=== PATIENT | female | born 1990 | race Caucasian/White ===

== ENCOUNTER 2019-12-20 05:49 | Inpatient (IN) ==
--- NOTE | 2019-12-19 09:21 | History & Physical Report ---
Date of Service December 19, 2019 Assessment & Plan (1) : Plan for repeat section. This surgery is essential and must be done at the appropriate gestational age (39w) to prevent morbidity and mortality of baby and mother. It cannot be delayed. History of Present Illness Chief Complaint: repeat section Primary Care Provider: NO PCP 29yo @ 39 11/15 for scheduled repeat section. History of c- section in prior delivery for failure to progress at [facility]. otherwise uncomplicated. Allergies Allergy/AdvReac Type Severity Reaction Status Date / Time No Known Allergies Verified 12/19/19 08:30 Home Medications Home Medications Medication Instructions Recorded Confirmed Type 21-iron fu-folic acid PO 05/08/19 12/19/19 History Patient History Medical History Fibroid Varicella Surgical History S/P Family History Father Hypertension Hypercholesteremia Grandfather (Paternal) Hypertension Heart disease Mother Hypercholesteremia Grandmother (Maternal) Hypercholesteremia Social History marital status: marital status details: Malcom Segura (29) [phone] Current Living Situation: Family Current Living Situation Comment: dog, cat- spouse changing cat litter. current occupational status: employed current occupation: HR Smoking Status: Never smoker Hx Alcohol Use: No Hx Substance Use: No Review of Systems All systems reviewed & are unremarkable except as noted in HPI & below Physical Exam Constitutional: WD/WN, vitals as above Respiratory: normal respiratory effort, lungs clear to auscultation no respiratory distress Cardiovascular: Rate/Rhythm: regular rate and regular rhythm Gastrointestinal (Abdomen): Inspection/Auscultation: abdomen normal to inspection Percussion/Palpation: abdomen soft; abdomen nontender Gravid. No s/s chorio or abruption. Skin: no rashes, warm and dry Psychiatric: A+Ox3, euthymic affect Monitoring External Monitor FHT 150s in office Coding Level of Care Code None Diagnoses Z34.90
[2019-12-20] MEDS ORDERED: SODIUM CHLORIDE 0.9% 250 ML IV PRN (05:53)
[2019-12-20] MEDS ORDERED: CITRIC ACID/SODIUM CITRATE 15 ML UDC PO SCH (06:00)
[2019-12-20] MEDS ORDERED: LACTATED RINGER'S 1,000 ML IV SCH ×2 (06:00→10:36)
[2019-12-20] MEDS ORDERED: CEFAZOLIN 2,000 MG in SYRINGE 0 ML IV SCH (06:00)
[2019-12-20 06:10] LABS: Basophils # (auto) 0.02 K/uL (0-0.2); Basophils % (auto) 0.2 %; Eosinophils # (auto) 0.09 K/uL (0-0.5); Eosinophils % (auto) 0.8 %; Hematocrit (blood only) 39.4 % (37-47); Immature Granulocytes # (auto) 0.09 K/uL (0.00-0.02); Immature Granulocytes % (auto) 0.8 %; Lymphocytes % (auto) 21.6 %; Mean Corpuscular Hemoglobin 29.3 pg (25-34); Mean Corpuscular Volume 88.7 fL (80-100); Mean Platelet Volume 10.7 fL (7.4-10.4); Monocytes # (auto) 0.69 K/uL (0.11-0.59); Monocytes % (auto) 6.2 %; Neutrophils # (auto) 7.82 K/uL (1.4-6.5); Neutrophils % (auto) 70.4 %; Platelet Count 192 K/uL (130-400); RDW Standard Deviation 45.9 fL (36.4-46.3); Red Blood Count 4.44 M/uL (4.2-5.4); White Blood Count 11.11 K/uL (4.8-10.8)
--- NOTE | 2019-12-20 07:02 | Anesthesiology Consultation ---
Date of Service December 20, 2019 Assessment & Plan (1) Encounter for pre-operative examination: Chart Review Chart Review: Acceptable Risk for Surgery and Patient NOT seen in Pre Admission Testing Consults Requested none ASA ASA2 Proposed Anesthesia Anesthesia Type: Spinal Risk / Benefits Reviewed With: PT / POA / Parent / Guardian, Accepts Plan and In formed Consent Obtained History Surgery Operation Date: 12/20/19 07:30 Proposed Procedures p Section in COURT - Stephanie Martino, Height/Weight Height: 5 ft 2 in Weight: 81.647 kg Allergies Allergy/AdvReac Type Severity Reaction Status Date / Time No Known Allergies Verified 12/19/19 08:30 Medications Home Medications Medication Instructions Recorded Confirmed Last Taken vit-iron fum-folic ac 27 tab PO DAILY 12/20/19 12/20/19 12/19/19 [ Vitamin] NPO Date Last Intake of Fluids: 12/19/19 Time Last Intake of Fluids: 22:00 Date Last Intake of Solids: 12/19/19 Time Last Intake of Solids: 17:00 Past Medical History Medical History Fibroid Varicella Exercise / Class Metabolic Activity II 4-5 Yardwork/Stairs/Walk up hill Past Family History Family History Father Hypertension Hypercholesteremia Grandfather (Paternal) Hypertension Heart disease Mother Hypercholesteremia Grandmother (Maternal) Hypercholesteremia Past Surgical History Surgical History S/P Past Anesthesia History No Hx of Anesthesia Complications History of PONV No Hx of Motion Sickness Social History Smoking Status: Never smoker Hx Alcohol Use: No Hx Substance Use: No Review of Systems Patient denies history of abnormal bleeding or bleeding disorder. Patient denies active use of anticoagulants other than low dose aspirin. Patient denies numbness, tingling or weakness in lower extremities. Negative for chest pain or shortness of breath. Physical Exam Vital Signs Last Vital Signs Temp 36.6 C 12/20/19 06:04 Pulse 102 H 12/20/19 06:00 Resp 18 12/20/19 06:30 BP 118/59 L 12/20/19 06:00 Constitutional not obese (Gravid uterus) ENMT Mouth: no TMJ abnormality and oral opening not small Thyromental Distance: > or= 3.5 Finger Breadths Mallampati Class: I Neck normal visual inspection; neck extension not limited Respiratory normal respiratory effort Auscultation: lungs clear to auscultation bilaterally Cardiovascular Rate/Rhythm: regular rate and regular rhythm Heart Sounds: no murmur Neurologic moves all extremities Psychiatric Orientation: alert and oriented x 3 Testing Laboratory Results 12/20/19 06:00
[2019-12-20] MEDS ORDERED: PHENYLEPHRINE HCL 10 MG/ML VIAL ONE (07:08)
[2019-12-20] MEDS ORDERED: ONDANSETRON INJ 2 MG/ML 2 ML VIAL ONE ×2 (07:08→08:16)
[2019-12-20] MEDS ORDERED: MoRPHine SULFATE PF 1 MG/ML 10 ML AMP/VIAL ONE ×2 (07:10→07:17)
[2019-12-20] MEDS ORDERED: fentaNYL citrate 100 MCG/2 ML VIAL ONE (07:10)
[2019-12-20] MEDS ORDERED: OXYTOCIN 10 UNITS/ML VIAL ONE ×4 (07:19→08:34)
--- NOTE | 2019-12-20 07:28 | History & Physical Bridge Note ---
Date of Service December 20, 2019 History & Physical Bridge Note I have examined the patient, reviewed the History & Physical and in the interval since the performance of the History & Physical I have noted the following changes of clinical significance: no changes noted
[2019-12-20] MEDS ORDERED: KETOROLAC 30 MG/ML VIAL ONE (09:00)
[2019-12-20 09:02] LABS: Base Excess Cord Arterial Bld -1.7 mEq/L (-9-1.8); CO2 Cord Arterial Blood 51 mmHg (39.1-73.5); HCO3 Cord Arterial Blood 25 mmol/L (19.7-28.5); PO2 Cord Arterial Blood 20 mmHg (4.1-31.7); pH Cord Arterial Blood 7.31 (7.1-7.38)
[2019-12-20 09:06] LABS: Base Excess Cord Venous Blood -2.1 mEq/L (-7.7-1.9); Cord Venous Blood HCO3 23 mmol/L (18.4-26.8); Cord Venous Blood PCO2 39 mmHg (30.4-57.2); Cord Venous Blood PO2 33 mmHg (14.1-43.3); Cord Venous Blood pH 7.39 (7.20-7.44)
--- NOTE | 2019-12-20 09:21 | Operative Report ---
PG Post Operative Report Pre & Post Diagnosis Operation Date: 12/20/19 07:30 Pre-Op Diagnosis: 1. History of c/section X 1 2. Term Post-Op Diagnosis: Same I identified the patient and participated in the time-out.: Yes Procedure Operation Date: 12/20/19 07:30 Actual Procedures p repeat low transverse Section in - Stephanie Martino DO Surgeon Stephanie Martino DO Department Supervisor Yossi Monreal MD Estimated Blood Loss 400 Findings Consistent with Post-Op Diagnosis Viable female , Apgars 8/9. Weight 6#12. Normal appearing uterus, tubes, ovaries. Specimens placenta, cord blood, cord gas Drains arnold, clear yellow Anesthesia Type Spinal Complications none Disposition Accompanied Patient To Recovery: No Disposition: L&D Indications 29yo @ 39 11/15, h/o x 1 and desire for repeat. Description of Procedure The patient was seen in the preoperative holding area, where risks benefits and alternatives to surgery reviewed. She elected to proceed with the case. She had previously signed informed consent under no duress in the office. All ques tions were answered. The patient was taken to the operating room, spinal anesthesia was administered. She received 2 g of Ancef preoperatively. She was repaired and draped in the usual sterile fashion in the supine position with a leftward tilt. Timeout was confirmed. The Pfannenstiel skin incision was made with a scalpel and carried through to the underlying layer of fascia. The fascia was nicked at midline, and this incision was extended bilaterally sharply and bluntly. The superior aspect of the fascial incision was grasped with Aries clamps x2, elevated off the underlying rectus abdominis muscles, and dissected sharply and bluntly. In a similar fashion, the inferior aspect of the fascia was dissected. The rectus abdominis muscles were at midline, and the peritoneum was entered bluntly digitally and this incision was extended sharply and bluntly. The bladder flap was taken down using Metzenbaum scissors. Bladder blade was placed. A new scalpel was used to create a low transverse uterine incision, this was extended bilaterally bluntly. The was delivered from a cephalic presentation, the head was delivered, nuchal cord x1 was easily reduced. The shoulders followed by the body were delivered. Spontaneous cry was heard on the field. The cord was doubly clamped and cut, the baby was handed off to the waiting pediatrics team. A cord segment was retained for cord gases. Cord blood was obtained. Placenta was delivered spontaneously intact with three- vessel cord. The uterus was exteriorized, and cleared of all clots and debris. The hysterotomy was reapproximated using 0 Vicryl in a running locked stitch. A second layer of the same suture was used to imbricate the incision. The posterior uterus was evaluated and normal. The uterus was placed back inside the abdomen, and gutters were cleared of all clots and debris. The hysterotomy was reevaluated, and found to be hemostatic. The fascia was reapproximated using 0 Vicryl in a running stitch. The subcutaneous tissue was irrigated and reapproximated using 2-0 plain gut in a running stitch. The skin was reapproximated using 4-0 Vicryl in a running subcuticular stitch. Steri-Strips and a bandage were applied. Patient tolerated the procedure well, and sponge and instrument and needle counts were correct x2 at the conclusion of the case. She was taken to her room in stable and good condition. I attest to the content of the Intraoperative Record and any orders documented therein. Any exceptions are noted below.
[2019-12-20 09:51] LABS: Oxygen Sat Cord Arterial Blood < 60.0 % (<60)
--- NOTE | 2019-12-20 10:02 | Anesthesiology Progress Note ---
Date of Service December 20, 2019 Anesthesia Post Procedure Vital Signs Vital Signs: Temp Pulse Resp BP Pulse Ox 12/20/19 10:00 72 114/64 12/20/19 09:56 73 97 12/20/19 09:52 86 91 12/20/19 09:51 82 97 12/20/19 09:50 84 106/70 12/20/19 09:46 80 96 12/20/19 09:44 79 115/62 12/20/19 09:41 82 96 12/20/19 09:38 93 H 92 12/20/19 09:36 86 93 12/20/19 09:31 78 95 12/20/19 09:30 89 18 111/53 L 94 12/20/19 09:26 76 100 12/20/19 09:21 84 100 12/20/19 09:20 83 18 103/57 L 99 12/20/19 09:16 84 99 12/20/19 09:11 81 98 12/20/19 09:10 36.5 C 84 18 102/58 L 99 12/20/19 09:07 86 108/62 12/20/19 09:06 83 98 12/20/19 08:00 89 100 12/20/19 07:55 102 H 100 12/20/19 07:50 92 H 99 12/20/19 07:45 91 H 100 12/20/19 07:40 92 H 100 12/20/19 07:35 91 H 99 12/20/19 07:30 91 H 100 12/20/19 07:25 90 100 12/20/19 07:20 88 99 12/20/19 07:15 84 100 12/20/19 07:10 94 H 98 12/20/19 07:09 87 109/64 12/20/19 07:00 18 12/20/19 06:30 18 12/20/19 06:04 36.6 C 18 12/20/19 06:00 102 H 118/59 L Transfer of Care Handoff Completed per policy Notes Mental Status: alert / awake / arousable and participated in evaluation Nausea / Vomiting: adequately controlled Pain: adequately controlled Airway Patency, RR, SpO2: stable & adequate BP & HR: stable & adequate Hydration State: stable & adequate Neuraxial Anesthesia: was administered and sensory block is resolving Anesthetic Complications: no major complications apparent and Pt Satisfied with anesthetic care
[2019-12-20] MEDS ORDERED: DIPHTHERIA/TETANUS/PERTUSSIS 0.5 ML SYR/VIAL IM ONE (10:36)
[2019-12-20] MEDS ORDERED: BENZOCAINE 20% AER SPR 82.5 GM CAN EXT PRN (10:36)
[2019-12-20] MEDS ORDERED: HYDROCORTISONE ACETATE 25 MG SUPP PR PRN (10:36)
[2019-12-20] MEDS ORDERED: SENNA 8.6 MG TAB PO PRN (10:36)
[2019-12-20] MEDS ORDERED: MAGNESIUM HYDROXIDE SUSP 30 ML UDC PO PRN (10:36)
[2019-12-20] MEDS ORDERED: SUPERCREAM 0.870% 15 GM JAR EXT PRN (10:36)
[2019-12-20] MEDS: OXYTOCIN 30 UNITS in LACTATED RINGER'S 1,000 ML IV SCH ×2 (11:28→20:01)
[2019-12-20] MEDS: SIMETHICONE 80 MG CHEW PO SCH ×3 (12:47→20:01)
[2019-12-20] MEDS ORDERED: KETOROLAC 30 MG/ML VIAL IV PRN (13:26)
[2019-12-20] MEDS ORDERED: NALOXONE HCL 1 MG in SODIUM CHLORIDE 0.9% 1000ML 1,000 ML IV PRN (13:26)
[2019-12-20] MEDS ORDERED: LACTATED RINGER'S 500 ML IV PRN (13:26)
[2019-12-20] MEDS ORDERED: NALBUPHINE HCL INJ 10 MG/ML AMP IV PRN (13:26)
[2019-12-20] MEDS ORDERED: DiphenhydrAMINE HCL 50 MG/ML VIAL IV PRN (13:26)
[2019-12-20] MEDS ORDERED: MEPERIDINE HCL 25 MG/ML CARP/VIAL IV PRN (13:26)
[2019-12-20] MEDS ORDERED: NALOXONE HCL 0.08 MG in SYRINGE 1.8 ML IV PRN (13:26)
[2019-12-20] MEDS ORDERED: MoRPHine SULFATE PF 1 MG/ML 10 ML AMP/VIAL INT SPINAL ONE (13:26)
[2019-12-20] MEDS ORDERED: ePHEDrine sulfate 50 MG/ML AMP IV PRN (13:26)
[2019-12-20] MEDS ORDERED: NALOXONE HCL 0.4 MG/1 ML VIAL/CARP IV PRN (13:26)
[2019-12-20] MEDS ORDERED: ONDANSETRON INJ 2 MG/ML 2 ML VIAL IV PRN (13:26)
[2019-12-20] MEDS ORDERED: NO NARCOTICS OR SEDATIVES SCH (13:30)
[2019-12-20] MEDS ORDERED: SODIUM CHLORIDE 0.9% 1000ML 1,000 ML IV SCH (13:30)
[2019-12-20] MEDS ORDERED: DC INTRASPINAL MORPHINE SCH (19:30)
[2019-12-20] MEDS: DOCUSATE SODIUM 100 MG CAP PO SCH (20:08)
[2019-12-21] MEDS ORDERED: KETOROLAC 30 MG/ML VIAL IV PRN ×2 (02:10→07:27)
[2019-12-21] MEDS ORDERED: PROMETHAZINE HCL 25 MG in SODIUM CHLORIDE 0.9% 50 ML IV PRN ×2 (02:10→07:27)
[2019-12-21] MEDS ORDERED: DiphenhydrAMINE HCL 50 MG/ML VIAL IV PRN ×2 (02:10→07:27)
[2019-12-21] MEDS ORDERED: ONDANSETRON INJ 2 MG/ML 2 ML VIAL IV PRN ×2 (02:10→07:27)
[2019-12-21] MEDS ORDERED: OXYCODONE/ACETAMINOPHEN 5mg/325mg TAB PO PRN ×2 (02:10→07:27)
[2019-12-21] MEDS: IBUPROFEN 600 MG TAB PO PRN ×5 (02:59→23:41)
[2019-12-21 06:01] LABS: Hematocrit (blood only) 36.6 % (37-47); Hemoglobin 11.8 g/dL (12.0-16.0)
[2019-12-21] MEDS ORDERED: IBUPROFEN 600 MG TAB PO PRN (07:27)
[2019-12-21] MEDS: DOCUSATE SODIUM 100 MG CAP PO SCH ×2 (08:07→21:10)
[2019-12-21] MEDS: PRENATAL VITAMIN 1 TAB PO SCH (08:08)
[2019-12-21] MEDS: FERROUS SULFATE 325 MG TAB PO SCH (08:08)
[2019-12-21] MEDS: SIMETHICONE 80 MG CHEW PO SCH ×4 (08:08→21:10)
--- NOTE | 2019-12-21 08:21 | Obstetrical Progress Note ---
Date of Service December 21, 2019 Assessment & Plan (1) : POD#1 doing well. Continue routine postop care. Subjective Ambulation: ambulating normally Voiding: no voiding problems Passing Gas:: Yes Diet Tolerance:: regular diet Lochia:: Moderate Feeding Type:: breast feeding POD#1 doing well. No concerns. Briscoe out, ambulating, passing gas, tolerating PO. Review of Systems All systems reviewed & are unremarkable except as noted in HPI & below Physical Exam Constitutional WD/WN, vitals as above no acute distress Respiratory normal respiratory effort Cardiovascular Rate/Rhythm: regular rate and regular rhythm Gastrointestinal (Abdomen) Inspection/Auscultation: abdomen normal to inspection; abdomen not distended Percussion/Palpation: abdomen soft Genitourinary OB Exam Abdomen: + fundal height Fundus: + firm; not tender Results & Data Vital Signs (Past 12 Hours) Vital Signs Temp Pulse Resp BP Pulse Ox 12/21/19 03:15 36.8 C 70 14 97/61 L 98 12/21/19 01:50 16 99 12/21/19 01:00 16 100 12/20/19 23:50 36.8 C 69 16 111/79 99 12/20/19 23:00 16 96 12/20/19 22:30 16 98 12/20/19 21:30 16 99 12/20/19 20:30 16 98
[2019-12-21] MEDS ORDERED: PRENATAL VIT IRON FUM FOLIC AC PO SCH (09:00)
[2019-12-21] MEDS ORDERED: ACETAMINOPHEN 325 MG TAB PO PRN (14:11)
[2019-12-21] MEDS ORDERED: OXYCODONE HCL IR 5 MG TAB (IMMEDIATE RELEASE) PO PRN (14:11)
[2019-12-21] MEDS ORDERED: bisacodyL 5 MG TABEC PO SCH (20:00)
[2019-12-22] MEDS: DOCUSATE SODIUM 100 MG CAP PO SCH (07:36)
[2019-12-22] MEDS: FERROUS SULFATE 325 MG TAB PO SCH (07:36)
[2019-12-22] MEDS: PRENATAL VITAMIN 1 TAB PO SCH (07:36)
[2019-12-22] MEDS: SIMETHICONE 80 MG CHEW PO SCH (07:36)
[2019-12-22] MEDS: IBUPROFEN 600 MG TAB PO PRN (07:36)
[2019-12-22] MEDS ORDERED: ACETAMINOPHEN W/CODEINE #3 1 TAB PO PRN ×2 (07:43)
--- NOTE | 2019-12-22 07:46 | Obstetrical Progress Note ---
Date of Service December 22, 2019 Assessment & Plan (1) : POD#1 doing well. Continue routine postop care. Subjective Ambulation: ambulating normally Voiding: no voiding problems Diet Tolerance:: regular diet Lochia:: Moderate Feeding Type:: breast feeding Physical Exam Constitutional WD/WN, vitals as above Respiratory normal respiratory effort; no respiratory distress and no labored breathing Gastrointestinal (Abdomen) Inspection/Auscultation: abdomen normal to inspection; abdomen not distended Percussion/Palpation: abdomen soft; abdomen nontender, no guarding and abdomen not rigid Incision healing well Genitourinary OB Exam Abdomen: + fundal height Fundus: + firm and + relation to umbilicus (Below); not tender and not boggy Results & Data Vital Signs (Past 12 Hours) Vital Signs Temp Pulse Resp BP Pulse Ox 12/21/19 23:20 37.0 C 63 16 107/74 97
[2019-12-22] MEDS ORDERED: TYLENOL #3 HOME PACK PO ONE (08:49)
[2019-12-22] MEDS ORDERED: bisacodyL 10 MG SUPP PR PRN (09:09)
--- NOTE | 2019-12-22 10:27 | Anesthesiology Progress Note ---
Date of Service December 22, 2019 Anesthesia Post Procedure Vital Signs Vital Signs: Temp Pulse Resp BP Pulse Ox 12/22/19 10:00 36.8 C 64 16 111/75 99 12/22/19 07:45 36.8 C 64 16 111/75 99 12/21/19 23:20 37.0 C 63 16 107/74 97 12/21/19 16:00 37.1 C 76 18 126/81 99 Pain Intensity Lower Abdomen: Pain Intensity: 1 Transfer of Care Handoff Completed per policy Notes Mental Status: alert / awake / arousable Patient Amnestic to Procedure: Yes Nausea / Vomiting: adequately controlled Pain: adequately controlled Airway Patency, RR, SpO2: stable & adequate BP & HR: stable & adequate Hydration State: stable & adequate Neuraxial Anesthesia: was administered and sensory block resolved Anesthetic Complications: no major complications apparent and Pt Satisfied with anesthetic care Notes: The patient was discharged this AM.
--- NOTE | 2019-12-23 14:10 | Discharge Summary ---
Date of Service December 23, 2019 Admission HPI Per Admitting Provider 29yo @ 39 11/15 for scheduled repeat section. History of c- section in prior delivery for failure to progress at [facility]. otherwise uncomplicated. Discharge Data Consultations 12/20/19 05:51 Consult Anesthesiology Stat Procedures Performed Operation Date: 12/20/19 07:30 Actual Procedures p Repeat low transverse Section in [facility] Stephanie Martino DO Hospital Course (1) : Admitted for scheduled repeat low transverse section. Routine postop care, was discharged to home POD#2. Coding Level of Care Code None Diagnoses Z34.90
== END 2019-12-22 10:00 | disposition home or self-care (01) | DRG 788 ==
LOC: 4S1 05:49 → EDSTATUS 07:30 → 4S2 11:20

== ENCOUNTER 2023-05-05 05:42 | Inpatient (IN) ==
--- NOTE | 2023-04-28 12:44 | Anesthesiology Consultation ---
Date of Service April 28, 2023 Assessment & Plan (1) Encounter for pre-operative examination: Chart Review Chart Review: entry clerk initiated -Infectious Disease screening: Per PAT nursing assessment on 04/28/23. No known infectious disease contacts in past 10 days or current infectious disease symptoms. No recent travel outside the country. Repeat 12/20/19= Done under SAB at L3 with 1 attempt History Surgery Operation Date: 05/05/23 07:30 Proposed Procedures p Section in LD (Delivery of Baby Through Abdominal Incision) - Lizzette Winkler MD, FACOG Height/Weight Height: 5 ft 2 in Weight: 83.007 kg Allergies Allergy/AdvReac Type Severity Reaction Status Date / Time No Known Allergies Allergy Verified 04/28/23 12:00 Medications Home Medications Medication Instructions Recorded Confirmed Last Taken prenat.vits,joseph,[id number] 1 tab PO DAILY 10/12/22 04/28/23 Unknown Past Medical History Medical History Exercise-induced asthma hx>no inh-mainly in high school Fibroid in her breasts-years ago due to OBC and "they went away" History of chicken pox Past Family History Family History Father Hypertension Hypercholesteremia Grandfather (Paternal) Hypertension Heart disease Mother Hypercholesteremia Grandmother (Maternal) Hypercholesteremia Denies family history of Ovarian cancer Breast cancer Colorectal cancer Past Surgical History Surgical History S/P x2 Social History Smoking Status: Never smoker Do You Dip or Chew Tobacco: No Hx Alcohol Use: Yes alcohol intake frequency: holidays/special occasions only Alcohol Intake Frequency Comment: not while Hx Substance Use: No substance use type: does not use
--- NOTE | 2023-05-04 10:55 | History & Physical Report ---
Date of Service May 04, 2023 Assessment & Plan (1) 39 weeks gestation of : (2) Previous delivery affecting , antepartum: Plan Will plan c/s on day of admission. will need labs, iv. consent reviewed and signed. denies concerns. risks and alt reviewed. rh pos, r-->equiv, mmr pp rec. History of Present Illness Chief Complaint: planned repeat c/s Primary Care Provider: NO PCP 33yo at 39+wks on day of her admission for planned repeat c/s. Patient has felt well. No rom, vb. +FM. No ctx. Declines concomitant tubal ligation. This will be her third c/s. PNC c/b 1. prior c/s x 2 2. MMR pp rec. PNL rh pos, rubella equivocal, gbs neg OBH: c/s x 2. GYNH: nl paps, no stds Allergies Allergy/AdvReac Type Severity Reaction Status Date / Time No Known Allergies Allergy Verified 05/04/23 09:05 Home Medications Medication Instructions Recorded Confirmed Type prenat.vits,joseph,[id number] 1 tab PO DAILY 10/12/22 05/04/23 History Patient History Medical History Exercise-induced asthma hx>no inh-mainly in high school Fibroid in her breasts-years ago due to OBC and "they went away" History of chicken pox Surgical History S/P x2 Family History Father Hypertension Hypercholesteremia Grandfather (Paternal) Hypertension Heart disease Mother Hypercholesteremia Grandmother (Maternal) Hypercholesteremia Denies family history of Ovarian cancer Breast cancer Colorectal cancer Social History (Updated 10/12/22 @ 09:57 by Lauren Roberts) Smoking Status: Never smoker Second Hand Exposure: No; Do You Dip or Chew Tobacco: No; Hx Alcohol Use: Yes Hx Substance Use: No Preferred Language: Malay Communication Ability: Effective Group Contract Analyst Required: No Beliefs That Will Affect Care: None marital status: marital status details: Malcom Segura (32) [phone] Current Living Situation: Spouse and Family Current Living Situation Comment: lives with spouse, 2 children, dog current occupational status: employed 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
[2023-05-05] MEDS ORDERED: CITRIC ACID/SODIUM CITRATE 15 ML UDC PO SCH (06:00)
[2023-05-05] MEDS ORDERED: LACTATED RINGER'S 1,000 ML IV SCH (06:00)
[2023-05-05] MEDS ORDERED: ceFAZolin 2,000 MG in SYRINGE 0 ML IV SCH (06:00)
[2023-05-05 06:24] LABS: Basophils # (auto) 0.02 K/uL (0.00-0.20); Basophils % (auto) 0.2 %; Eosinophils # (auto) 0.07 K/uL (0.00-0.50); Eosinophils % (auto) 0.8 %; Hematocrit (blood only) 40.2 % (37.0-47.0); Hemoglobin 13.3 g/dl (12.0-16.0); Immature Granulocytes % (auto) 1.1 %; Lymphocytes # (auto) 1.88 K/uL (1.20-3.40); Lymphocytes % (auto) 20.3 %; Mean Corpuscular Hemoglobin 29.2 pg (25.0-34.0); Mean Corpuscular Hgb Conc 33.1 g/dL (32.0-36.0); Mean Corpuscular Volume 88.4 fL (80.0-100.0); Mean Platelet Volume 10.7 fL (9.4-12.4); Monocytes # (auto) 0.54 K/uL (0.11-0.59); Monocytes % (auto) 5.8 %; Neutrophils # (auto) 6.64 K/uL (1.40-6.50); Neutrophils % (auto) 71.8 %; Platelet Count 185 K/uL (130-400); RDW Coefficient of Variation 13.4 % (11.5-14.5); RDW Standard Deviation 43.3 fL (36.4-46.3); Red Blood Count 4.55 M/uL (4.20-5.40); White Blood Count 9.25 K/ul (4.8-10.8)
[2023-05-05] MEDS ORDERED: OXYTOCIN 10 UNITS/ML VIAL ONE (06:59)
[2023-05-05] MEDS ORDERED: fentaNYL citrate PF 100 MCG/2 ML VIAL ONE (06:59)
[2023-05-05] MEDS ORDERED: MoRPHine SULFATE PF 1 MG/ML 10 ML AMP/VIAL ONE (06:59)
[2023-05-05] MEDS ORDERED: ONDANSETRON INJ 2 MG/ML 2 ML VIAL ONE (06:59)
[2023-05-05] MEDS ORDERED: PHENYLEPHRINE 100MCG/ML 5ML SYR ONE (06:59)
[2023-05-05] MEDS ORDERED: SODIUM CHLORIDE 0.9% 250 ML IV PRN (07:08)
--- NOTE | 2023-05-05 07:25 | History & Physical Bridge Note ---
Date of Service May 05, 2023 History & Physical Bridge Note I have examined the patient, reviewed the History & Physical and in the interval since the performance of the History & Physical I have noted the following changes of clinical significance: no changes noted
[2023-05-05] MEDS ORDERED: NALOXONE HCL 0.08 MG in SYRINGE 1.8 ML IV PRN (07:45)
[2023-05-05] MEDS ORDERED: LACTATED RINGER'S 500 ML IV PRN (07:45)
[2023-05-05] MEDS ORDERED: diphenhydrAMINE 50 MG/ML VIAL IV PRN (07:45)
[2023-05-05] MEDS ORDERED: NALBUPHINE HCL INJ 10 MG/ML AMP IV PRN (07:45)
[2023-05-05] MEDS ORDERED: NO NARCOTICS OR SEDATIVES SCH (07:45)
[2023-05-05] MEDS ORDERED: ePHEDrine sulfate 50 MG/ML AMP IV PRN (07:45)
[2023-05-05] MEDS ORDERED: MoRPHine SULFATE PF 1 MG/ML 10 ML AMP/VIAL INT SPINAL ONE (07:45)
[2023-05-05] MEDS ORDERED: HYDROmorphone INJ 0.5 MG/0.5 ML SYR IV PRN (07:45)
[2023-05-05] MEDS ORDERED: NALOXONE HCL 0.4 MG/1 ML VIAL/CARP IV PRN (07:45)
[2023-05-05] MEDS ORDERED: PROMETHAZINE HCL 12.5 MG in SODIUM CHLORIDE 0.9% 50 ML IV PRN (07:45)
[2023-05-05] MEDS ORDERED: SODIUM CHLORIDE 0.9% 1000ML 1,000 ML IV SCH (07:45)
[2023-05-05] MEDS ORDERED: ONDANSETRON INJ 2 MG/ML 2 ML VIAL IV PRN (07:45)
[2023-05-05] MEDS ORDERED: DC INTRASPINAL MORPHINE SCH (07:45)
[2023-05-05] MEDS ORDERED: NALOXONE HCL 1 MG in SODIUM CHLORIDE 0.9% 1000ML 1,000 ML IV PRN (07:45)
--- NOTE | 2023-05-05 08:25 | Operative Report ---
PG Post Operative Report Pre & Post Diagnosis Operation Date: 05/05/23 07:30 Pre-Op Diagnosis: 1. 39 weeks 2. Previous section x 2 Post-Op Diagnosis: Same I identified the patient and participated in the time-out.: Yes Procedure Operation Date: 05/05/23 07:30 Actual Procedures p Repeat Low Transverse Section in LD (Delivery of Baby Through Abdominal Incision) with the of a live female child at 0751. - Lizzette Winkler MD, FACOG Surgeon Lizzette Winkler MD, FACOG Drum Attendant Berta Estimated Blood Loss 450 Findings Consistent with Post-Op Diagnosis (viable female , apgars pending. normal uterus, tubes and ovaries bilaterally. ) Fluids 1100cc Specimens cord blood Drains arnold Anesthesia Type Spinal Complications none Disposition Accompanied Patient To Recovery: No Disposition: L&D Indications 33yo at 39+wks egsergio presents to L&D for planned repeat c/s with history of c/s x 2. Description of Procedure The patient was taken to the operating room and identified. After adequate anesthesia was obtained, she was placed in the supine position with a leftward tilt on the operating table and prepped and draped in the usual sterile fashion. A arnold catheter had already been placed. The knife was used to create a Pfannensteil skin incision that was carried down to the underlying layer of fascia. The fascia was nicked in the midline and this opening was extended laterally using Morales scissors. Ronen clamps were placed on the superior and inferior aspect of the fascial incision tenting it upward and the underlying rectus muscles were dissected off the overlying fascia both sharply and bluntly using Morales scissors. The rectus muscles were bluntly in the midline. The peritoneal cavity was bluntly entered into. This opening was stretched. The bladder blade was placed. The vesicouterine peritoneum was elevated and opened up into and the bladder flap was created digitally and bladder blade was replaced. The knife was used to create a hysterotomy and this opening was stretched. The operators hand was placed through the hysterotomy and the bladder blade was removed. The head was elevated and flexed and with fundal pressure the head was delivered. The shoulders and body were rapidly delivered. The cord was clamped and cut and the 's mouth and nares were bulb suction. The infant was handed off to the awaiting pediatricians. Cord blood was obtained. The placenta was manually expressed. The uterus was exteriorized and cleared of all clots and debris. Dilute IV Pitocin was begun. The uterine tone was improving. The hysterotomy was closed in a running interlocking fashion using 0 Vicryl followed by a second imbricating layer of 0 Vicryl. The hysterotomy was not hemostatic in midline and so additional figure of eight suture of 2-0 vicryl placed for excellent hemostasis. The pelvis was irrigated. The uterus was returned to the abdomen. The gutters were cleared of all clots and debris. The hysterotomy was reinspected and noted to be hemostatic. The fascia was then closed in running fashion using 0 Vicryl. The subcutaneous fat was copiously irrigated and reapproximated using 2-0 chromic. The skin was closed in a subcuticular fashion using 4-0 monocryl. At this point the procedure was terminated. The patient was transferred to the recovery room in stable condition. All sponge, lap and needle counts are correct x2. I attest to the content of the Intraoperative Record and any orders documented therein. Any exceptions are noted below. OB Procedure Charges 17881
[2023-05-05] MEDS ORDERED: MEASLES, MUMPS & RUBELLA VIRUS VIAL SQ ONE (08:27)
[2023-05-05] MEDS ORDERED: SENNA 8.6 MG TAB PO PRN (08:40)
[2023-05-05] MEDS ORDERED: BENZOCAINE 20% SPRY 85 APPLN/85 GM CAN EXT PRN (08:40)
[2023-05-05] MEDS ORDERED: DIPHTHERIA/TETANUS/PERTUSSIS Vaccine (Tdap, Age 7+yrs) 0.5mL SYR/VL IM ONE (08:40)
[2023-05-05] MEDS ORDERED: MAGNESIUM HYDROXIDE SUSP 30 ML UDC PO PRN (08:40)
[2023-05-05] MEDS ORDERED: HYDROCORTISONE ACETATE 25 MG SUPP PR PRN (08:40)
--- NOTE | 2023-05-05 08:40 | Anesthesiology Progress Note ---
Date of Service May 05, 2023 Anesthesia Post Procedure Vital Signs Vital Signs: Temp Pulse Resp BP Pulse Ox 05/05/23 05:59 37.1 C 18 05/05/23 08:32 70 98 05/05/23 08:37 80 98 05/05/23 08:29 73 99/54 L 05/05/23 08:27 71 97 05/05/23 07:04 76 113/69 05/05/23 05:55 18 05/05/23 05:55 37.1 C 05/05/23 05:54 96 H 111/76 Transfer of Care Handoff Completed per policy Notes Mental Status: alert / awake / arousable and participated in evaluation Patient Amnestic to Procedure: No Nausea / Vomiting: adequately controlled Pain: adequately controlled Airway Patency, RR, SpO2: stable & adequate BP & HR: stable & adequate Hydration State: stable & adequate Neuraxial Anesthesia: was administered and sensory block is resolving Anesthetic Complications: no major complications apparent and Pt Satisfied with anesthetic care
[2023-05-05] MEDS ORDERED: NON-FORMULARY MEDICATION (Prenat.Vits,Cal,Min-Iron-Folic tablet) PO SCH (09:00)
[2023-05-05] MEDS: OXYTOCIN 20 UNITS in LACTATED RINGER'S 1,000 ML IV SCH ×2 (10:40→18:52)
[2023-05-05] MEDS: KETOROLAC 30 MG/ML VIAL IV PRN ×2 (11:17→22:35)
[2023-05-05] MEDS: SIMETHICONE 80 MG CHEW PO SCH ×3 (12:05→21:14)
[2023-05-05] MEDS: LACTATED RINGER'S 1,000 ML IV SCH (18:48)
[2023-05-05] MEDS: DOCUSATE SODIUM 100 MG CAP PO SCH (21:14)
[2023-05-06] MEDS ORDERED: diphenhydrAMINE Capsule 25 MG CAP PO PRN (01:46)
[2023-05-06] MEDS ORDERED: diphenhydrAMINE 50 MG/ML VIAL IV PRN (01:46)
[2023-05-06] MEDS ORDERED: ONDANSETRON INJ 2 MG/ML 2 ML VIAL IV PRN (01:46)
[2023-05-06] MEDS ORDERED: MEPERIDINE HCL 50 MG/ML CARP IV PRN (01:46)
[2023-05-06] MEDS ORDERED: PROMETHAZINE HCL 25 MG in SODIUM CHLORIDE 0.9% 50 ML IV PRN (01:46)
[2023-05-06] MEDS ORDERED: KETOROLAC 30 MG/ML VIAL IV PRN (01:46)
[2023-05-06 06:29] LABS: Basophils # (auto) 0.03 K/uL (0.00-0.20); Basophils % (auto) 0.4 %; Eosinophils # (auto) 0.13 K/uL (0.00-0.50); Eosinophils % (auto) 1.6 %; Hematocrit (blood only) 32.9 % (37.0-47.0); Immature Granulocytes # (auto) 0.05 K/uL (0.01-0.20); Immature Granulocytes % (auto) 0.6 %; Lymphocytes # (auto) 1.53 K/uL (1.20-3.40); Lymphocytes % (auto) 18.8 %; Mean Corpuscular Hemoglobin 29.8 pg (25.0-34.0); Mean Corpuscular Hgb Conc 33.4 g/dL (32.0-36.0); Mean Corpuscular Volume 89.2 fL (80.0-100.0); Monocytes # (auto) 0.56 K/uL (0.11-0.59); Monocytes % (auto) 6.9 %; Neutrophils # (auto) 5.84 K/uL (1.40-6.50); Neutrophils % (auto) 71.7 %; Platelet Count 142 K/uL (130-400); RDW Coefficient of Variation 13.4 % (11.5-14.5); Red Blood Count 3.69 M/uL (4.20-5.40); White Blood Count 8.14 K/ul (4.8-10.8)
--- NOTE | 2023-05-06 06:53 | Obstetrical Progress Note ---
Date of Service May 06, 2023 Assessment & Plan (1) S/P : Plan: encourage ambulation pain management Admission and Anticipated Discharge Date Admission Date: May 05, 2023 Supervising Physician Co-Signing Physician Notes Resident Physician Supervision Note: I was present with Dr. Sanderson during the history and exam. I discussed the case with the resident and agree with the findings and plan as documented in the note. Any exceptions or clarifications are listed here: [None] Documented By: Javier Davidson MD, FACOG Subjective 33 yo post day 1 s/p Ambulation: ambulating normally Voiding: no voiding problems Passing Gas:: Yes Diet Tolerance:: regular diet Lochia:: Small Feeding Type:: bottle feeding Current Pain Level: minimal Resting comfortably this AM Denies TONG, CP, SOB, N/V/D, LE swelling Review of Systems Review of Systems: reviewed, per hpi Physical Exam Physical Exam: General: patient resting comfortably, NAD, non-toxic in appearance, AA&O x 4, answers questions appropriately. Skin: warm, dry, intact HEENT: NC/AT, anicteric sclera, conjunctiva without injection, moist mucus membranes. Heart: +S1/S2, regular, no m/r/g Lungs: equal air entry bilaterally, no rales/rhonchi/wheezes Abd: +BS, soft, NT/ND, uterine fundus firm at umbilicus, Ext: warm, no clubbing/cyanosis or edema, Kendra's neg Neuro: nonfocal, patient AA&O x 4, speech intact, no facial droop, moving all extremities on command. Results & Data Vital Signs (Past 12 Hours) Vital Signs Temp Pulse Resp BP Pulse Ox O2 Del Method 05/06/23 03:35 36.6 C 79 16 104/69 98 Room Air 05/06/23 00:45 36.7 C 71 17 109/70 96 Room Air 05/06/23 00:55 16 97 05/05/23 23:55 16 96 05/05/23 22:55 16 97 05/05/23 21:55 16 98 05/05/23 20:55 16 97 05/05/23 19:55 17 98 05/05/23 19:55 Room Air 05/05/23 19:55 36.7 C 56 L 17 109/71 98 Room Air Resident Activity Tracking Resident Involvement: Resident Care Provided Care Provided: Adult Hospital Medicine
[2023-05-06] MEDS: PRENATAL VITAMIN 1 TAB PO SCH (08:02)
[2023-05-06] MEDS: DOCUSATE SODIUM 100 MG CAP PO SCH ×2 (08:02→20:40)
[2023-05-06] MEDS: SIMETHICONE 80 MG CHEW PO SCH ×4 (08:03→20:40)
[2023-05-06] MEDS: IBUPROFEN 600 MG TAB PO PRN ×3 (08:03→17:21)
[2023-05-06] MEDS: FERROUS SULFATE 325 MG TAB PO SCH (08:03)
[2023-05-06] MEDS: oxyCODONE/ACETAMINOPHEN 5mg/325mg TAB PO PRN ×3 (09:18→17:21)
[2023-05-06] MEDS ORDERED: bisacodyL 5 MG TABEC PO SCH (20:00)
[2023-05-07] MEDS: oxyCODONE/ACETAMINOPHEN 5mg/325mg TAB PO PRN ×2 (00:25→07:28)
[2023-05-07] MEDS: IBUPROFEN 600 MG TAB PO PRN ×2 (00:25→07:30)
[2023-05-07 06:47] LABS: Hematocrit (blood only) 34.5 % (37.0-47.0); Hemoglobin 11.3 g/dl (12.0-16.0)
[2023-05-07] MEDS: SIMETHICONE 80 MG CHEW PO SCH (07:24)
[2023-05-07] MEDS: DOCUSATE SODIUM 100 MG CAP PO SCH (07:25)
[2023-05-07] MEDS: PRENATAL VITAMIN 1 TAB PO SCH (07:25)
[2023-05-07] MEDS: FERROUS SULFATE 325 MG TAB PO SCH (07:26)
[2023-05-07] MEDS ORDERED: MEASLES, MUMPS & RUBELLA VIRUS VIAL ONE (07:40)
--- NOTE | 2023-05-07 08:07 | Obstetrical Progress Note ---
Date of Service May 07, 2023 Assessment & Plan (1) examination following delivery: Plan stable, doing well. wants to go home. instructions reviewed. mmr given. breast/rhpos. f/u 6wk pp check. checked on papdmp and no issues. hgb noted. Day #:: 2 Subjective Ambulation: ambulating normally Voiding: no voiding problems Passing Gas:: Yes Diet Tolerance:: regular diet Lochia:: Small Feeding Type:: breast feeding denies pain issues. wants to go home. Constitutional: + as per Subjective / HPI Physical Exam Constitutional WD/WN, vitals as above Respiratory normal respiratory effort, lungs clear to auscultation Cardiovascular Rate/Rhythm: regular rate and regular rhythm Gastrointestinal (Abdomen) Inspection/Auscultation: abdomen normal to inspection and + abdominal surgical incision (c/d/i with minimal bruising) Percussion/Palpation: abdomen soft fundus firm 1-2 cm below umbilicus Musculoskeletal nt calves trace pedal edema Neurologic grossly normal Psychiatric A+Ox3, euthymic affect Results & Data Vital Signs (Past 12 Hours) Vital Signs Temp Pulse Resp BP Pulse Ox O2 Del Method 05/07/23 00:30 97.7 F 80 20 111/74 98 Room Air 05/06/23 20:45 97.7 F 79 18 117/66
[2023-05-07] MEDS ORDERED: bisacodyL 10 MG SUPP PR PRN (08:16)
--- NOTE | 2023-05-09 15:07 | Discharge Summary ---
Date of Service Date of admission 05/05/23 Date of discharge: May 07, 2023 Admission HPI Per Admitting Provider 33yo at 39+wks on day of her admission for planned repeat c/s. Patient has felt well. No rom, vb. +FM. No ctx. Declines concomitant tubal ligation. This will be her third c/s. PNC c/b 1. prior c/s x 2 2. MMR pp rec. PNL rh pos, rubella equivocal, gbs neg OBH: c/s x 2. GYNH: nl paps, no stds Discharge Data Consultations 05/05/23 04:46 Consult Anesthesiology Stat Procedures Performed Operation Date: 05/05/23 07:30 Actual Procedures p Repeat Low Transverse Section in LD (Delivery of Baby Through Abdominal Incision) with the of a live female child at 0751. - Lizzette Winkler MD, [facility] Course (1) examination following delivery: The patient underwent the above stated procedure without incident and her postoperative course and recovery was uncomplicated. On her postoperative day #2 she was tolerating a regular diet, voiding spontaneously, ambulating without problem and was using oral meds for adequate pain control. Her postoperative hemoglobin was 11.3. She was given written and verbal discharge instructions and told to followup in office at 6wks. She was given appropriate pain medicine prescriptions. Coding Level of Care Code None Diagnoses examination following delivery Z39.2
== END 2023-05-07 09:07 | disposition home or self-care (01) | DRG 788 ==
LOC: 4S1 05:42 → EDSTATUS 07:30 → 4E2 11:10
DX: Z3A.37 37 weeks gestation of pregnancy; Z23 Encounter for immunization; Z37.0 Single live birth; O34.211 Maternal care for low transverse scar from previous cesarean delivery